=== PATIENT | female | born 1995 ===

== ENCOUNTER 2017-01-01 11:19 | Emergency (ER) | payer SELFPAY ==
[2017-01-01 11:28] VITALS: RESP 18; TEMP 98.3; O2SAT 100; BMI 28.8
--- NOTE | 2017-01-01 12:31 | ED PDOC ---
Arrival/HPI - General Historian: Patient - History of Present Illness Time/Duration: < month Symptom Course: Worsening <Javier Orozco - Last Filed: 01/01/17 14:31> <Wellington Bahena Jr. - Last Filed: 01/01/17 15:02> - General Chief Complaint: Chest Pain Time Seen by Provider: 01/01/17 11:26 - History of Present Illness Narrative History of Present Illness (Text): 01/01/17 11:38 28 y/o female with no significant PMH presents with left sided chest pain which has been ongoing on and off for the past 2 months. Patient states the pain is located to her left anterior - lateral chest and is described as heaviness. Pain typically follows episodes of anxiety and is associated with palpitations at times. Patient denies shortness of breath, diaphoresis, n/v/d. She is not currently taking contraceptives. Patient denies recent travel or prolonged immobility. Patient is a smoker however. There is no family history of cardiac disease. (Jaiver Orozco) Past Medical History - Provider Review Nursing Documentation Reviewed: Yes - Infectious Disease Hx of Infectious Diseases: None - Cardiac Hx Cardiac Disorders: Yes Hx Heart Murmur: Yes Other/Comment: HEART MURMUR - Pulmonary Hx Respiratory Disorders: No - Neurological Hx Neurological Disorder: No - HEENT Hx HEENT Disorder: No - Renal Hx Renal Disorder: No - Endocrine/Metabolic Hx Endocrine Disorders: No - Hematological/Oncological Hx Blood Disorders: No - Integumentary Hx Dermatological Disorder: No - Musculoskeletal/Rheumatological Hx Musculoskeletal Disorders: No - Gastrointestinal Hx Gastrointestinal Disorders: No - Genitourinary/Gynecological Hx Genitourinary Disorders: Yes Hx Sexually Transmitted Diseases: Yes - Psychiatric Hx Psychophysiologic Disorder: No Hx Substance Use: Yes (marijuana) - Anesthesia Hx Anesthesia: No Hx Anesthesia Reactions: No Hx Malignant Hyperthermia: No <Javier Orozco - Last Filed: 01/01/17 14:31> Family/Social History - Physician Review Nursing Documentation Reviewed: Yes Family/Social History: No Known Family HX Smoking Status: Heavy Smoker > 10 Cigarettes Daily Hx Alcohol Use: Yes ("on weekends") Frequency of alcohol use: Few days per week Hx Substance Use: Yes (marijuana) <Javier Orozco - Last Filed: 01/01/17 14:31> Allergies/Home Meds <Javier Orozco - Last Filed: 01/01/17 14:31> <Wellington Bahena Jr. - Last Filed: 01/01/17 15:02> Allergies/Adverse Reactions: Allergies Penicillins Allergy (Verified 01/01/17 11:29) SWELLING Home Medications: Home Meds Medication Instructions Recorded Confirmed No Known Home Med 01/01/17 01/01/17 Review of Systems - Physician Review All systems were reviewed & negative as marked: Yes - Review of Systems Constitutional: Normal. absent: Fatigue, Fevers Eyes: Normal ENT: Normal Respiratory: absent: SOB, Cough, Sputum, Wheezing Cardiovascular: Chest Pain, Palpitations. absent: Edema, Calf Pain, RAMOS Gastrointestinal: absent: Abdominal Pain, Diarrhea, Nausea, Vomiting Genitourinary Female: absent: Dysuria, Frequency, Hematuria Musculoskeletal: absent: Arthralgias, Back Pain, Neck Pain Skin: absent: Rash, Pruritis Neurological: absent: Headache, Dizziness, Focal Weakness Psychiatric: Anxiety, Depression <Javier Orozco - Last Filed: 01/01/17 14:31> Physical Exam Vital Signs Reviewed: Yes Temperature: Afebrile Blood Pressure: Normal Pulse: Regular Respiratory Rate: Normal Appearance: Positive for: Well-Appearing Pain Distress: None Mental Status: Positive for: Alert and Oriented X 3 - Systems Exam Head: Present: Atraumatic, Normocephalic Pupils: Present: PERRL Extroacular Muscles: Present: EOMI Conjunctiva: Present: Normal Mouth: Present: Normal Tounge Respiratory/Chest: Present: Clear to Auscultation, Good Air Exchange. No: Respiratory Distress Cardiovascular: Present: Regular Rate and Rhythm, Normal S1, S2 Abdomen: No: Tenderness, Distention Upper Extremity: Present: Normal Inspection. No: Cyanosis, Edema Lower Extremity: Present: Normal Inspection, NORMAL PULSES. No: Edema, CALF TENDERNESS, Cyanosis, Raul's Sign Neurological: Present: GCS=15, CN II-XII Intact, Speech Normal Skin: Present: Warm, Dry. No: Rashes Psychiatric: Present: Alert, Oriented x 3, Normal Insight, Normal Concentration <Javier Orozco - Last Filed: 01/01/17 14:31> Vital Signs Temp Pulse Resp BP Pulse Ox 01/01/17 13:19 68 18 112/64 100 01/01/17 11:28 98.3 F 72 18 114/69 100 Medical Decision Making <Javier Orozco - Last Filed: 01/01/17 14:31> <Wellington Bahena Jr. - Last Filed: 01/01/17 15:02> ED Course and Treatment: 01/01/17 12:50 21 y/o female with no significant PMH presenting with complaints of chronic left sided chest pain. Patient is a tobacco user however she does not exhibit other risk factors for PE. Pain is not reproducible with palpation or pectoral muscle contraction. There is a history of reported anxiety which may be the underlying cause of patient's presentation. - chest xray - re-evaluate 01/01/17 14:32 chest film reviewed there is no active disease. Patient relates that she has been experiencing anxiety recently which is typically associated with her chest symptoms. Patient was advised to see her PCP , Dr. Mccabe for further management of her anxiety and depression. Prior to discharge the patient eloped from the ED. IV line was removed by the patient and found at bedside. (Javier Orozco) Patient seen and examined with resident. Came up with treatment and disposition plan with resident. The patient is a 28 year old female who comes into the emergency department for evaluation of chronic left sided chest pain. Additional HPI details as noted by the resident. Physical examine reveals no acute findings. EKG and Chest X-ray ordered to rule out ACS vs. musculoskeletal. Patient EKG shows NSR with sinus arrhythmia. Chest X-ray shows no acute findings. Patient eloped from the emergency department. (Wellington Bahena Jr.) - RAD Interpretation Radiology Orders: 01/01/17 11:39 CHEST PORTABLE [RAD] Stat <Javier Orozco - Last Filed: 01/01/17 14:31> - Scribe Statement The provider has reviewed the documentation as recorded by the Scribe <Wellington Bahena Jr. - Last Filed: 01/01/17 15:02> - Scribe Statement Tung Barboza Provider Scribe Attestation: All medical record entries made by the Scribe were at my direction and personally dictated by me. I have reviewed the chart and agree that the record accurately reflects my personal performance of the history, physical exam, medical decision making, and the department course for this patient. I have also personally directed, reviewed, and agree with the discharge instructions and disposition. (Wellington Bahena Jr.) Disposition/Present on Arrival - Present on Arrival Any Indicators Present on Arrival: No History of DVT/PE: No History of Uncontrolled Diabetes: No Urinary Catheter: No History of Decub. Ulcer: No History Surgical Site Infection Following: None - Disposition Have Diagnosis and Disposition been Completed?: Yes Disposition Time: 14:50 <Javier Orozco - Last Filed: 01/01/17 14:31> <Wellington Bahena Jr. - Last Filed: 01/01/17 15:02> - Disposition Diagnosis: Anxiety Disposition: ELOPEMENT - ER ONLY Patient Problems: Current Active Problems Problem Status Diagnosed Anxiety Acute Condition: GOOD
[2017-01-01 13:21] VITALS: BP 112/64; PULSE 68
--- NOTE | 2017-01-01 13:35 | RAD ---
HISTORY: chest pain COMPARISON: No prior. FINDINGS: LUNGS: No active pulmonary disease. PLEURA: No significant pleural effusion identified, no pneumothorax apparent. CARDIOVASCULAR: Normal. OSSEOUS STRUCTURES: No significant abnormalities. VISUALIZED UPPER ABDOMEN: Normal. OTHER FINDINGS: None. IMPRESSION: No active disease.
--- NOTE | 2017-01-01 17:25 | CARD ---
APPROVED REPORT EKG Measurement Heart [id number] [id number] <Conclusion> Normal sinus rhythm with sinus arrhythmia Normal ECG
== END 2017-01-01 14:30 | disposition left against medical advice (07) ==
LOC: ED 11:19
DX: F41.9 Anxiety disorder, unspecified (principal); R01.1 Cardiac murmur, unspecified

== ENCOUNTER 2017-02-24 00:22 | Emergency (ER) | payer MEDICAID ==
[2017-02-24 00:27] VITALS: BMI 25.7
[2017-02-24 00:29] VITALS: BP 111/75; PULSE 88; RESP 18; TEMP 98; O2SAT 99
--- NOTE | 2017-02-24 01:05 | ED PDOC ---
Arrival/HPI - General Chief Complaint: Anxiety Time Seen by Provider: 02/24/17 00:58 Historian: Patient - History of Present Illness Narrative History of Present Illness (Text): 02/24/17 01:03 21 y/o female, no pmh, penicillin allergy, c/o feeling anxiousness x 2 months and will like to speak to a psychiatrist. Pt. stated that she has been feeling constantly anxious, occasionally unable to sleep,no palpitation, no night sweat , no alcohol or drug abuse, no rash, no other medical or psychological complaints. Past Medical History - Provider Review Nursing Documentation Reviewed: Yes - Infectious Disease Hx of Infectious Diseases: None - Cardiac Hx Cardiac Disorders: Yes Hx Heart Murmur: Yes Other/Comment: HEART MURMUR - Pulmonary Hx Respiratory Disorders: No - Neurological Hx Neurological Disorder: No - HEENT Hx HEENT Disorder: No - Renal Hx Renal Disorder: No - Endocrine/Metabolic Hx Endocrine Disorders: No - Hematological/Oncological Hx Blood Disorders: No - Integumentary Hx Dermatological Disorder: No - Musculoskeletal/Rheumatological Hx Musculoskeletal Disorders: No - Gastrointestinal Hx Gastrointestinal Disorders: No - Genitourinary/Gynecological Hx Genitourinary Disorders: Yes Hx Sexually Transmitted Diseases: Yes - Psychiatric Hx Anxiety: Yes Hx Panic Disorder: Yes Hx Substance Use: Yes (marijuana) - Anesthesia Hx Anesthesia: No Hx Anesthesia Reactions: No Hx Malignant Hyperthermia: No Family/Social History - Physician Review Nursing Documentation Reviewed: Yes Family/Social History: Unknown Family HX Smoking Status: Former Smoker Hx Alcohol Use: Yes ("on weekends") Frequency of alcohol use: Socially Hx Substance Use: Yes (marijuana) Allergies/Home Meds Allergies/Adverse Reactions: Allergies Penicillins Allergy (Verified 01/25/17 11:40) SWELLING Review of Systems - Review of Systems Constitutional: absent: Fatigue, Fevers Eyes: absent: Vision Changes ENT: absent: Hearing Changes Respiratory: absent: SOB, Cough Cardiovascular: absent: Chest Pain Gastrointestinal: absent: Abdominal Pain, Nausea, Vomiting Psychiatric: absent: Anxiety, Depression, Suicidal Ideation Physical Exam Vital Signs Reviewed: Yes Vital Signs Temp Pulse Resp BP Pulse Ox 02/24/17 00:29 98 F 88 18 111/75 99 Temperature: Afebrile Blood Pressure: Normal Pulse: Regular Respiratory Rate: Normal Appearance: Positive for: Well-Appearing, Non-Toxic, Comfortable Pain Distress: None Mental Status: Positive for: Alert and Oriented X 3 - Systems Exam Head: Present: Atraumatic, Normocephalic Pupils: Present: PERRL Extroacular Muscles: Present: EOMI Conjunctiva: Present: Normal Mouth: Present: Moist Mucous Membranes Neck: Present: Normal Range of Motion Respiratory/Chest: Present: Clear to Auscultation, Good Air Exchange. No: Respiratory Distress, Accessory Muscle Use Cardiovascular: Present: Regular Rate and Rhythm, Normal S1, S2. No: Murmurs Abdomen: Present: Normal Bowel Sounds. No: Tenderness, Distention, Peritoneal Signs Back: Present: Normal Inspection Upper Extremity: Present: Normal Inspection. No: Cyanosis, Edema Lower Extremity: Present: Normal Inspection. No: Edema Neurological: Present: GCS=15, Speech Normal, Motor Func Grossly Intact, Gait Normal, Memory Normal Skin: Present: Warm, Dry, Normal Color. No: Rashes Psychiatric: Present: Alert, Oriented x 3, Normal Insight, Normal Concentration , Anxious Medical Decision Making ED Course and Treatment: 02/24/17 01:05 -labs/ua/uds -ekg/chest x-ray -xanax 0.25mg po -will call PES 02/24/17 02:16 -NSR @ 91 BPM, no ST elevation or depression, no T wave inversion, compared with previous ekg. -Chest x-ray show no active disease -Labs show non-significant -UA show +UTI -UDS show -Pt. refused PES now. -Pt. request xanax and be discharged home. -Discharge home with macrobid, stay hydrated, bed rest, follow up with your own pmd and psychiatrist within 2 days, return to the ER for any new or worsening signs or symptoms. - Lab Interpretations Lab Results: 02/24/17 01:41 Lab Results 02/24/17 01:41: WBC 13.3 H D, RBC 4.22, Hgb 12.0, Hct 36.1, MCV 85.5, MCH 28.4, MCHC 33.2, RDW 14.1, Plt Count 349, MPV 8.9, Gran % 66.4, Lymph % (Auto) 27.4, [place] % (Auto) 5.0, Eos % (Auto) 1.0 L, Baso % (Auto) 0.2, Gran # 8.82 H, Lymph # 3.6 H, [place] # 0.7 H, Eos # 0.1, Baso # 0.03 02/24/17 01:15: Urine Color Yellow, Urine Appearance Sl cloudy, Urine pH 7.5, Ur Specific [place] 1.015, Urine Protein Negative, Urine Glucose (UA) Negative, Urine Ketones Negative, Urine Blood Trace-intact H, Urine Nitrate Negative, Urine Bilirubin Negative, Urine Urobilinogen 0.2, Ur Leukocyte Esterase Negative , Urine RBC 0 - 2, Urine WBC 10 - 15, Ur Epithelial Cells 3 - 4, Urine Bacteria Mod Interpretation: Abnormal lab values (+UTI) - RAD Interpretation Radiology Orders: 02/24/17 01:01 CHEST PORTABLE [RAD] Stat - EKG Interpretation EKG Interpretation (Text): 02/24/17 01:28 NSR @ 91 BPM, no ST elevation or depression, no T wave inversion, compared with previous ekg. Interpreted by ED Physician: Yes Type: 12 lead EKG Comparison: Com.w/previous EKG - Medication Orders Current Medication Orders: Discontinued Medications Alprazolam (Xanax) 0.25 mg PO STAT STA PRN Reason: Protocol Stop: 02/24/17 02:07 Nitrofurantoin Macrocrystals (Macrobid) 100 mg PO STAT STA Stop: 02/24/17 01:58 - PA / [employer] / Resident Statement / has reviewed & agrees with the documentation as recorded. Disposition/Present on Arrival - Present on Arrival Any Indicators Present on Arrival: No History of DVT/PE: No History of Uncontrolled Diabetes: No Urinary Catheter: No History of Decub. Ulcer: No History Surgical Site Infection Following: None - Disposition Have Diagnosis and Disposition been Completed?: Yes Diagnosis: UTI (urinary tract infection), Anxiety Disposition: HOME/ ROUTINE Disposition Time: :17 Patient Plan: Discharge Patient Problems: Current Active Problems Problem Status Onset Anxiety Acute Condition: GOOD Additional Instructions: Discharge home with macrobid, stay hydrated, bed rest, follow up with your own pmd and psychiatrist within 2 days, return to the ER for any new or worsening signs or symptoms. Prescriptions: Nitrofurantoin Macrocrystals [Macrobid] 100 mg PO BID #14 cap Referrals: [facility] [Outside] - Follow up with primary Forms: WORK NOTE
[2017-02-24 01:27] LABS: PH,URINE 7.5 (4.7-8.0); URINE BILIRUBIN NEGATIVE (NEGATIVE); URINE BLOOD TRACE-INTACT (NEGATIVE); URINE GLUCOSE (UA) NEGATIVE (NEGATIVE); URINE KETONE NEGATIVE (NEGATIVE); URINE LEUKOCYTE ESTERASE NEGATIVE Leu/uL (NEGATIVE); URINE PROTEIN NEGATIVE mg/dL (<30 mg/dL); URINE UROBILINOGEN 0.2 E.U./dL (<1 E.U./dL)
[2017-02-24 01:32] LABS: URINE APPEARANCE SL CLOUDY (CLEAR); URINE COLOR YELLOW (YELLOW)
[2017-02-24 01:43] LABS: URINE RBC 0 - 2 /hpf (0-2)
[2017-02-24 01:44] LABS: URINE BACTERIA MOD (NEG)
[2017-02-24 01:48] LABS: ADD MANUAL DIFF? NO
[2017-02-24 01:51] LABS: BASO # 0.03 K/mm3 (0.0-2.0); BASO % 0.2 % (0.0-3.0); EOS # 0.1 (0.0-0.7); GRAN # 8.82 (1.4-6.5); GRAN % 66.4 % (50.0-68.0); HEMATOCRIT 36.1 % (36.0-48.0); LYMPH # 3.6 (1.2-3.4); LYMPH % 27.4 % (22.0-35.0); MEAN CELL VOLUME 85.5 fL (80.0-105.0); MEAN CORPUSCULAR HEMOGLOBIN 28.4 pg (25.0-35.0); MEAN CORPUSCULAR HGB CONC 33.2 g/dl (31.0-37.0); MEAN PLATELET VOLUME 8.9 fl (7.0-11.0); MONO # 0.7 (0.1-0.6); PLATELET COUNT 349 10^3/uL (120.0-450.0); RED CELL DISTRIBUTION WIDTH 14.1 % (11.5-14.5); WHITE BLOOD COUNT 13.3 10^3/ul (4.5-11.0)
[2017-02-24 02:15] LABS: ALB/GLOB RATIO 1.3 (1.1-1.8); ALKALINE PHOSPHATASE 83 U/L (38-133); ALT/SGPT 43 U/L (7-56); AST/SGOT 42 U/L (15-39); BILIRUBIN,TOTAL 0.4 mg/dL (0.2-1.3); BLOOD UREA NITROGEN 14 mg/dL (7-21); CALCIUM 8.9 mg/dL (8.4-10.5); CARBON DIOXIDE 27 mmol/L (21-33); CHLORIDE 104 mmol/L (98-107); GFR AFRICAN-AMERICAN > 60; GLUCOSE,RANDOM 84 mg/dL (70-110); POTASSIUM 3.8 mmol/L (3.6-5.0); SODIUM 138 mmol/L (132-148); TOTAL PROTEIN 6.5 g/dL (5.8-8.3)
[2017-02-24 02:29] LABS: ALCOHOL SERUM < 10 mg/dL (0-10)
[2017-02-24 02:44] LABS: THYROID STIMULATING HORMONE 0.69 mIU/mL (0.46-4.68)
--- NOTE | 2017-02-24 06:35 | RAD ---
HISTORY: medical clearance COMPARISON: No prior. FINDINGS: LUNGS: No active pulmonary disease. PLEURA: No significant pleural effusion identified, no pneumothorax apparent. CARDIOVASCULAR: Normal. OSSEOUS STRUCTURES: No significant abnormalities. VISUALIZED UPPER ABDOMEN: Normal. OTHER FINDINGS: None. IMPRESSION: No active disease.
--- NOTE | 2017-02-24 12:35 | CARD ---
APPROVED REPORT EKG Measurement Heart [id number] <Conclusion> Normal sinus rhythm with sinus arrhythmia Normal ECG
== END 2017-02-24 02:30 | disposition home or self-care (01) ==
LOC: ED 00:22
DX: F41.9 Anxiety disorder, unspecified (principal); N39.0 Urinary tract infection, site not specified

== ENCOUNTER 2017-03-12 02:45 | Emergency (ER) | payer MEDICAID ==
[2017-03-12 02:45] VITALS: BMI 25.7
[2017-03-12 03:04] VITALS: RESP 18; TEMP 98.4
--- NOTE | 2017-03-12 03:26 | ED PDOC ---
Arrival/HPI - General Chief Complaint: Chest Pain Time Seen by Provider: 03/12/17 02:56 Historian: Patient - History of Present Illness Narrative History of Present Illness (Text): 03/12/17 03:23 Aliya Smith is a 21 year old female, with no significant past medical history, presents to the emergency department complaining of 1 hour duration of chest pain and palpitations. Patient woke up from sleep with the symptoms. States that pain is worsened with deep inspiration and position. Denies any fever, chills, headache, dizziness, shortness of breath, nausea, vomiting, diarrhea, urinary symptoms, or any other complaints at this time. Time/Duration: 1 hour Symptom Onset: Sudden Severity Level: Mild Activities at Onset: Sleeping Past Medical History - Provider Review Nursing Documentation Reviewed: Yes - Infectious Disease Hx of Infectious Diseases: None - Cardiac Hx Cardiac Disorders: Yes Hx Heart Murmur: Yes Other/Comment: HEART MURMUR - Pulmonary Hx Respiratory Disorders: No - Neurological Hx Neurological Disorder: No - HEENT Hx HEENT Disorder: No - Renal Hx Renal Disorder: No - Endocrine/Metabolic Hx Endocrine Disorders: No - Hematological/Oncological Hx Blood Disorders: No - Integumentary Hx Dermatological Disorder: No - Musculoskeletal/Rheumatological Hx Musculoskeletal Disorders: No - Gastrointestinal Hx Gastrointestinal Disorders: No - Genitourinary/Gynecological Hx Genitourinary Disorders: Yes Hx Sexually Transmitted Diseases: Yes - Psychiatric Hx Anxiety: Yes Hx Panic Disorder: Yes Hx Substance Use: Yes (marijuana) - Anesthesia Hx Anesthesia: No Hx Anesthesia Reactions: No Hx Malignant Hyperthermia: No Family/Social History - Physician Review Nursing Documentation Reviewed: Yes Family/Social History: No Known Family HX Smoking Status: Former Smoker Hx Alcohol Use: Yes ("on weekends") Hx Substance Use: Yes (marijuana) Allergies/Home Meds Allergies/Adverse Reactions: Allergies Penicillins Allergy (Verified 01/25/17 11:40) SWELLING Review of Systems - Physician Review All systems were reviewed & negative as marked: Yes - Review of Systems Constitutional: Normal. absent: Fatigue, Fevers Respiratory: absent: SOB, Cough, Sputum Cardiovascular: Chest Pain, Palpitations Gastrointestinal: Normal. absent: Abdominal Pain, Diarrhea, Nausea, Vomiting Genitourinary Female: Normal Neurological: Normal. absent: Headache, Dizziness Psychiatric: Normal Physical Exam Vital Signs Reviewed: Yes Vital Signs Temp Pulse Resp BP Pulse Ox 03/12/17 05:36 88 18 112/87 98 03/12/17 03:00 98.4 F 74 18 124/68 99 Temperature: Afebrile Blood Pressure: Normal Pulse: Regular Respiratory Rate: Normal Appearance: Positive for: Well-Appearing, Non-Toxic, Comfortable Pain Distress: None Mental Status: Positive for: Alert and Oriented X 3 - Systems Exam Head: Present: Atraumatic, Normocephalic Pupils: Present: PERRL Conjunctiva: Present: Normal Respiratory/Chest: Present: Clear to Auscultation, Good Air Exchange. No: Respiratory Distress, Accessory Muscle Use Cardiovascular: Present: Regular Rate and Rhythm, Normal S1, S2. No: Murmurs Abdomen: Present: Normal Bowel Sounds. No: Tenderness, Distention, Peritoneal Signs Upper Extremity: Present: Normal Inspection. No: Cyanosis, Edema Lower Extremity: Present: Normal Inspection. No: Edema Neurological: Present: GCS=15, CN II-XII Intact, Speech Normal, Motor Func Grossly Intact, Normal Sensory Function Skin: Present: Warm, Dry, Normal Color. No: Rashes Psychiatric: Present: Alert, Oriented x 3, Normal Insight, Normal Concentration Medical Decision Making ED Course and Treatment: 03/12/17 03:27 Impression: A 21 year old female who presents to the emergency department complaining of chest pain and palpitations of past hour. Plan: -- EKG -- Labs, cardiac enzymes -- D-dimer -- Urinalysis -- Reassess and disposition Progress Notes: 03/12/17 03:32 EKG reviewed by me: NSR @ 81 bpm with sinus arrhythmia. - Lab Interpretations Lab Results: 03/12/17 03:30 03/12/17 03:30 Lab Results 03/12/17 05:00: Urine Color Yellow, Urine Appearance Clear, Urine pH 7.0, Ur Specific [place] 1.010, Urine Protein Negative, Urine Glucose (UA) Negative, Urine Ketones Negative, Urine Blood Trace-lysed H, Urine Nitrate Negative, Urine Bilirubin Negative, Urine Urobilinogen 0.2, Ur Leukocyte Esterase Moderate H, Urine RBC 0 - 2, Urine WBC 2 - 5, Ur Epithelial Cells 1 - 3, Urine Bacteria Few 03/12/17 03:30: Sodium 136, Potassium 3.5 L, Chloride 104, Carbon Dioxide 25, Anion Gap 11, BUN 10, Creatinine 0.6, Est GFR ( Amer) > 60, Est GFR (Non- Af Amer) > 60, Random Glucose 99, Calcium 9.0, Magnesium 1.8, Total Bilirubin 0.4, AST 46 H, ALT 41, Alkaline Phosphatase 63, Lactate Dehydrogenase 486, Total Creatine Kinase 64, Troponin I < 0.01, Total Protein 6.6, Albumin 3.8, Globulin 2.8, Albumin/Globulin Ratio 1.4 03/12/17 03:30: D-Dimer, Quantitative 0.24 03/12/17 03:30: WBC 15.4 H, RBC 4.27, Hgb 12.1, Hct 37.1, MCV 86.9, MCH 28.3, MCHC 32.6, RDW 14.8 H, Plt Count 327, MPV 9.1, Gran % 65.3, Lymph % (Auto) 26.4 , [place] % (Auto) 5.0, Eos % (Auto) 3.0, Baso % (Auto) 0.3, Gran # 10.02 H, Lymph # 4.1 H, [place] # 0.8 H, Eos # 0.5, Baso # 0.05 I have reviewed the lab results: Yes - RAD Interpretation [employer]: Radiologist - EKG Interpretation Interpreted by ED Physician: Yes Type: 12 lead EKG - Medication Orders Current Medication Orders: Discontinued Medications Nitrofurantoin Macrocrystals (Macrobid) 100 mg PO STAT STA Stop: 03/12/17 05:32 Last Admin: 03/12/17 05:36 Dose: 100 mg - Bharatibe Statement The provider has reviewed the documentation as recorded by the Mahsa Lorenzo Provider Attestation: All medical record entries made by the Mahsa were at my direction and personally dictated by me. I have reviewed the chart and agree that the record accurately reflects my personal performance of the history, physical exam, medical decision making, and the department course for this patient. I have also personally directed, reviewed, and agree with the discharge instructions and disposition. Disposition/Present on Arrival - Present on Arrival Any Indicators Present on Arrival: No History of DVT/PE: No History of Uncontrolled Diabetes: No Urinary Catheter: No History of Decub. Ulcer: No History Surgical Site Infection Following: None - Disposition Have Diagnosis and Disposition been Completed?: Yes Diagnosis: UTI (urinary tract infection), Chest pain, Disposition: HOME/ ROUTINE Disposition Time: 05:35 Condition: GOOD Discharge Instructions (ExitCare): Chest Pain (ED), Urinary Tract Infection in Women (ED) Prescriptions: Nitrofurantoin Macrocrystals [Macrobid] 100 mg PO BID #14 cap
[2017-03-12 03:48] LABS: ADD MANUAL DIFF? NO
[2017-03-12 04:00] LABS: BASO # 0.05 K/mm3 (0.0-2.0); BASO % 0.3 % (0.0-3.0); EOS # 0.5 (0.0-0.7); GRAN # 10.02 (1.4-6.5); GRAN % 65.3 % (50.0-68.0); HEMATOCRIT 37.1 % (36.0-48.0); LYMPH # 4.1 (1.2-3.4); LYMPH % 26.4 % (22.0-35.0); MEAN CELL VOLUME 86.9 fL (80.0-105.0); MEAN CORPUSCULAR HEMOGLOBIN 28.3 pg (25.0-35.0); MEAN CORPUSCULAR HGB CONC 32.6 g/dl (31.0-37.0); MEAN PLATELET VOLUME 9.1 fl (7.0-11.0); MONO # 0.8 (0.1-0.6); PLATELET COUNT 327 10^3/uL (120.0-450.0); RED CELL DISTRIBUTION WIDTH 14.8 % (11.5-14.5); WHITE BLOOD COUNT 15.4 10^3/ul (4.5-11.0)
[2017-03-12 04:05] LABS: ALB/GLOB RATIO 1.4 (1.1-1.8); ALKALINE PHOSPHATASE 63 U/L (38-133); ALT/SGPT 41 U/L (7-56); AST/SGOT 46 U/L (15-39); BILIRUBIN,TOTAL 0.4 mg/dL (0.2-1.3); BLOOD UREA NITROGEN 10 mg/dL (7-21); CARBON DIOXIDE 25 mmol/L (21-33); CHLORIDE 104 mmol/L (98-107); GFR AFRICAN-AMERICAN > 60; GLUCOSE,RANDOM 99 mg/dL (70-110); MAGNESIUM 1.8 mg/dL (1.7-2.2); POTASSIUM 3.5 mmol/L (3.6-5.0); SODIUM 136 mmol/L (132-148); TOTAL PROTEIN 6.6 g/dL (5.8-8.3)
[2017-03-12 04:14] LABS: TROPONIN I < 0.01 ng/mL
[2017-03-12 05:17] LABS: URINE BILIRUBIN NEGATIVE (NEGATIVE); URINE BLOOD TRACE-LYSED (NEGATIVE); URINE GLUCOSE (UA) NEGATIVE (NEGATIVE); URINE KETONE NEGATIVE (NEGATIVE); URINE LEUKOCYTE ESTERASE MODERATE Leu/uL (NEGATIVE); URINE PROTEIN NEGATIVE mg/dL (<30 mg/dL); URINE UROBILINOGEN 0.2 E.U./dL (<1 E.U./dL)
[2017-03-12 05:25] LABS: URINE APPEARANCE CLEAR (CLEAR); URINE COLOR YELLOW (YELLOW)
[2017-03-12 05:33] LABS: URINE BACTERIA FEW (NEG); URINE RBC 0 - 2 /hpf (0-2)
[2017-03-12 05:36] VITALS: BP 112/87; PULSE 88; O2SAT 98
--- NOTE | 2017-03-12 15:31 | CARD ---
APPROVED REPORT EKG Measurement Heart [id number] [place] 124P23 [id number] <Conclusion> Normal sinus rhythm with sinus arrhythmia Normal ECG
== END 2017-03-12 05:37 | disposition home or self-care (01) ==
LOC: ED 02:45
DX: O23.40 Unspecified infection of urinary tract in pregnancy, unspecified trimester (principal); Z3A.00 Weeks of gestation of pregnancy not specified; R07.9 Chest pain, unspecified

== ENCOUNTER 2017-03-16 19:01 | Emergency (ER) | payer MEDICAID ==
[2017-03-16 19:01] VITALS: BMI 25.7
[2017-03-16] MEDS ORDERED: Sodium Chloride 0.9% 1,000 ML IV STA (19:11)
[2017-03-16 19:12] VITALS: TEMP 99.6
--- NOTE | 2017-03-16 20:05 | ED PDOC ---
Arrival/HPI - General Chief Complaint: Chest Pain Time Seen by Provider: 03/16/17 19:04 Historian: Patient - History of Present Illness Narrative History of Present Illness (Text): 03/16/17 19:54 21yo female present with complaint of SOB, nausea and burning sensation on her chest. She was seen here last week for chest pain, and all her result was negative. She was noted to be at that time. States she drank alcohol yesterday. She denies vomiting, diarrhea, constipation, vaginal bleeding, urinary symptoms, diaphoresis, dizziness, any other complaint. Past Medical History - Provider Review Nursing Documentation Reviewed: Yes - Infectious Disease Hx of Infectious Diseases: None - Cardiac Hx Cardiac Disorders: Yes Hx Heart Murmur: Yes Other/Comment: HEART MURMUR - Pulmonary Hx Respiratory Disorders: No - Neurological Hx Neurological Disorder: No - HEENT Hx HEENT Disorder: No - Renal Hx Renal Disorder: No - Endocrine/Metabolic Hx Endocrine Disorders: No - Hematological/Oncological Hx Blood Disorders: No - Integumentary Hx Dermatological Disorder: No - Musculoskeletal/Rheumatological Hx Musculoskeletal Disorders: No - Gastrointestinal Hx Gastrointestinal Disorders: No - Genitourinary/Gynecological Hx Genitourinary Disorders: Yes Hx Sexually Transmitted Diseases: Yes - Psychiatric Hx Anxiety: Yes Hx Panic Disorder: Yes Hx Substance Use: Yes (marijuana) - Anesthesia Hx Anesthesia: No Hx Anesthesia Reactions: No Hx Malignant Hyperthermia: No Family/Social History - Physician Review Nursing Documentation Reviewed: Yes Family/Social History: Unknown Family HX Smoking Status: Heavy Smoker > 10 Cigarettes Daily Hx Alcohol Use: Yes ("on weekends") Hx Substance Use: Yes (marijuana) Allergies/Home Meds Allergies/Adverse Reactions: Allergies Penicillins Allergy (Verified 03/16/17 19:06) SWELLING Home Medications: Home Meds Medication Instructions Recorded Confirmed clonazePAM [Klonopin] 1 mg PO DAILY 03/16/17 03/16/17 Review of Systems - Physician Review All systems were reviewed & negative as marked: Yes - Review of Systems Constitutional: Normal Eyes: Normal ENT: Normal Respiratory: SOB Cardiovascular: Chest Pain Gastrointestinal: Nausea. absent: Abdominal Pain, Constipation, Diarrhea, Vomiting, Hematochezia, Hematemesis Genitourinary Female: Normal Musculoskeletal: Normal Skin: Normal Neurological: Normal Endocrine: Normal Hemo/Lymphatic: Normal Psychiatric: Normal Physical Exam Vital Signs Reviewed: Yes Vital Signs Temp Pulse Pulse Resp BP BP Pulse Ox 03/16/17 22:44 100 H 18 139/60 99 03/16/17 21:22 105 H 16 140/62 100 03/16/17 19:11 99.6 F 137 H 137 H 18 144/64 144/64 100 Temperature: Afebrile Blood Pressure: Normal Pulse: Tachycardic Respiratory Rate: Normal Appearance: Positive for: Well-Appearing, Non-Toxic, Comfortable Pain Distress: None Mental Status: Positive for: Alert and Oriented X 3 - Systems Exam Head: Present: Atraumatic, Normocephalic Pupils: Present: PERRL Extroacular Muscles: Present: EOMI Conjunctiva: Present: Normal Mouth: Present: Moist Mucous Membranes Neck: Present: Normal Range of Motion Respiratory/Chest: Present: Clear to Auscultation, Good Air Exchange. No: Respiratory Distress, Accessory Muscle Use, Wheezes, Decreased Breath Sounds, Rales, Retracting, Rhonchi Cardiovascular: Present: Regular Rate and Rhythm, Normal S1, S2. No: Murmurs Abdomen: Present: Normal Bowel Sounds. No: Tenderness, Distention, Peritoneal Signs, Rebound, Guarding, McBurney's Point Tender, Rovsing's Sign Present Back: Present: Normal Inspection Upper Extremity: Present: Normal Inspection. No: Cyanosis, Edema Lower Extremity: Present: Normal Inspection. No: Edema Neurological: Present: GCS=15, CN II-XII Intact, Speech Normal Skin: Present: Warm, Dry, Normal Color. No: Rashes Psychiatric: Present: Alert, Oriented x 3, Normal Insight, Normal Concentration Medical Decision Making ED Course and Treatment: 03/17/17 01:41 PT presented for stated history, Her HR improved in ED. She was comfortable. Lab was unremarkable. Marijuana was noted in her urine drug tox. EKG Sinus tachy at 118bpm. No ST changes. she was PERC negative. she was noted to tolerate fluid in ED. Result was DW the pt. she was advised to f/u with her PMD/OB. TRT ED for any new or worsening symptoms. - Lab Interpretations Lab Results: 03/16/17 19:25 03/16/17 19:25 Lab Results 03/16/17 19:25: Urine Opiates Screen Negative, Urine Methadone Screen Negative, Ur Barbiturates Screen Negative, Ur Phencyclidine Scrn Negative, Ur Amphetamines Screen Negative, U Benzodiazepines Scrn Negative, U Oth Cocaine Metabols Negative, U Cannabinoids Screen Positive H 03/16/17 19:25: Sodium 138, Potassium 3.5 L, Chloride 106, Carbon Dioxide 23, Anion Gap 13, BUN 9, Creatinine 0.7, Est GFR ( Amer) > 60, Est GFR (Non- Af Amer) > 60, Random Glucose 85, Calcium 9.1, Magnesium 1.9, Total Bilirubin 0.6, AST 33, ALT 51, Alkaline Phosphatase 65, Lactate Dehydrogenase 549, Total Creatine Kinase 96, Troponin I < 0.01, Total Protein 7.1, Albumin 4.1, Globulin 3.0, Albumin/Globulin Ratio 1.4 03/16/17 19:25: Urine Color Yellow, Urine Appearance Clear, Urine pH 8.0, Ur Specific [place] 1.015, Urine Protein Trace H, Urine Glucose (UA) Negative, Urine Ketones Negative, Urine Blood Trace-intact H, Urine Nitrate Negative, Urine Bilirubin Negative, Urine Urobilinogen 1.0 H, Ur Leukocyte Esterase Negative, Urine RBC 2 - 5, Urine WBC 0 - 2, Ur Epithelial Cells 4 - 5, Amorphous Sediment Few, Urine Bacteria Many, Urine Other Uyeast 03/16/17 19:25: PT 11.2, INR 1.04, APTT 26.5, D-Dimer, Quantitative 0.39 03/16/17 19:25: WBC 12.4 H, RBC 4.29, Hgb 12.3, Hct 36.8, MCV 85.8, MCH 28.7, MCHC 33.4, RDW 15.3 H, Plt Count 316, MPV 9.3, Gran % 81.1 H, Lymph % (Auto) 13.1 L, [place] % (Auto) 4.4, Eos % (Auto) 1.2 L, Baso % (Auto) 0.2, Gran # 10.08 H , Lymph # 1.6, [place] # 0.5, Eos # 0.2, Baso # 0.02 - Medication Orders Current Medication Orders: Discontinued Medications Famotidine (Pepcid) 20 mg IVP STAT STA Stop: 03/16/17 19:12 Last Admin: 03/16/17 19:41 Dose: 20 mg Sodium Chloride (Sodium Chloride 0.9%) 1,000 mls @ 999 mls/hr IV .Q1H1M STA Stop: 03/16/17 20:11 Last Admin: 03/16/17 19:43 Dose: 999 mls/hr Ondansetron HCl (Zofran Inj) 4 mg IVP STAT STA Stop: 03/16/17 19:12 Last Admin: 03/16/17 19:44 Dose: 4 mg Disposition/Present on Arrival - Present on Arrival Any Indicators Present on Arrival: No History of DVT/PE: No History of Uncontrolled Diabetes: No Urinary Catheter: No History of Decub. Ulcer: No History Surgical Site Infection Following: None - Disposition Have Diagnosis and Disposition been Completed?: Yes Diagnosis: , Substance abuse, Chest pain Disposition: HOME/ ROUTINE Disposition Time: 20:35 Patient Plan: Discharge Condition: STABLE Discharge Instructions (ExitCare): Chest Pain (ED) Additional Instructions: Follow up with your private Doctor/OB Return to ED for any new symptoms Referrals: Levi Whitehead MD [Primary Care Provider] - Follow up with primary
[2017-03-16 20:09] LABS: ADD MANUAL DIFF? NO
[2017-03-16 20:18] LABS: URINE APPEARANCE CLEAR (CLEAR); URINE BILIRUBIN NEGATIVE (NEGATIVE); URINE BLOOD TRACE-INTACT (NEGATIVE); URINE COLOR YELLOW (YELLOW); URINE GLUCOSE (UA) NEGATIVE (NEGATIVE); URINE KETONE NEGATIVE (NEGATIVE); URINE LEUKOCYTE ESTERASE NEGATIVE Leu/uL (NEGATIVE); URINE PROTEIN TRACE mg/dL (<30 mg/dL)
[2017-03-16 20:20] LABS: BASO # 0.02 K/mm3 (0.0-2.0); BASO % 0.2 % (0.0-3.0); EOS # 0.2 (0.0-0.7); EOS % 1.2 % (1.5-5.0); GRAN # 10.08 (1.4-6.5); GRAN % 81.1 % (50.0-68.0); HEMATOCRIT 36.8 % (36.0-48.0); LYMPH # 1.6 (1.2-3.4); LYMPH % 13.1 % (22.0-35.0); MEAN CELL VOLUME 85.8 fL (80.0-105.0); MEAN CORPUSCULAR HEMOGLOBIN 28.7 pg (25.0-35.0); MEAN CORPUSCULAR HGB CONC 33.4 g/dl (31.0-37.0); MEAN PLATELET VOLUME 9.3 fl (7.0-11.0); MONO # 0.5 (0.1-0.6); MONO % 4.4 % (1.0-6.0); PLATELET COUNT 316 10^3/uL (120.0-450.0); RED CELL DISTRIBUTION WIDTH 15.3 % (11.5-14.5); WHITE BLOOD COUNT 12.4 10^3/ul (4.5-11.0)
[2017-03-16 20:23] LABS: URINE AMORPHOUS SEDIMENT FEW; URINE BACTERIA MANY (NEG); URINE WBC 0 - 2 /hpf (0-6)
[2017-03-16 20:24] LABS: ALB/GLOB RATIO 1.4 (1.1-1.8); ALKALINE PHOSPHATASE 65 U/L (38-133); ALT/SGPT 51 U/L (7-56); AST/SGOT 33 U/L (15-39); BILIRUBIN,TOTAL 0.6 mg/dL (0.2-1.3); BLOOD UREA NITROGEN 9 mg/dL (7-21); CALCIUM 9.1 mg/dL (8.4-10.5); CARBON DIOXIDE 23 mmol/L (21-33); CHLORIDE 106 mmol/L (98-107); GFR AFRICAN-AMERICAN > 60; GLUCOSE,RANDOM 85 mg/dL (70-110); MAGNESIUM 1.9 mg/dL (1.7-2.2); POTASSIUM 3.5 mmol/L (3.6-5.0); SODIUM 138 mmol/L (132-148); TOTAL PROTEIN 7.1 g/dL (5.8-8.3)
[2017-03-16 20:28] LABS: D DIMER 0.39 mg/L FEU (0-0.50); INR 1.04 (0.93-1.08); PARTIAL THROMBOPLASTIN TIME 26.5 Seconds (23.7-30.8)
[2017-03-16 20:47] LABS: TROPONIN I < 0.01 ng/mL
[2017-03-16 22:46] VITALS: BP 139/60; PULSE 100; RESP 18; O2SAT 99
--- NOTE | 2017-03-17 10:58 | CARD ---
APPROVED REPORT EKG Measurement Heart [id number] <Conclusion> Sinus tachycardia NSSTW changes
== END 2017-03-16 22:46 | disposition home or self-care (01) ==
LOC: ED 19:01
DX: O26.899 Other specified pregnancy related conditions, unspecified trimester (principal); F12.10 Cannabis abuse, uncomplicated; R07.9 Chest pain, unspecified
CPT/HCPCS: 80053; 81001; 82550; 83615; 83735; 84484; 85025; 85378; 85610; 85730; 93005; 96361; 96374; 96375; 99285; G0480; J2405; J7040